=== PATIENT | female | born 1970 | race Two or more races ===

== ENCOUNTER 2022-12-02 16:39 | Emergency (ER) | payer OTHER, MEDICAID ==
[~2022-12-02] VITALS: Ht 172.7 cm; Wt 128.0 kg
[2022-12-02] MEDS ORDERED: HYDROmorphone HCL 2 MG/ML VL/or syr IM ONE (18:30)
[2022-12-02 19:13] LABS: Basophils # (auto) 0 10 ^3/uL (0-0.2); Basophils % (auto) 0.5 % (0.0-2.0); Eosinophils # (auto) 0 10 ^3/uL (0-0.8); Eosinophils % (auto) 0.3 % (0.0-7.0); Hematocrit 31.3 % (36.0-46.0); Hemoglobin 10.2 g/dL (12.2-16.2); Lymphocytes # (auto) 2.4 10 ^3/uL (0.4-5.4); Lymphocytes % (auto) 24.3 % (10.0-50.0); Mean Corpuscular Hemoglobin 30.1 pg (28.0-32.0); Mean Corpuscular Hgb Conc. 32.6 g/dL (32.0-36.0); Mean Corpuscular Volume 92.5 fL (80.0-100.0); Monocytes # (auto) 1.3 10 ^3/uL (0-1.3); Monocytes % (auto) 13.4 % (0.0-12.0); Neutrophils # (auto) 6.1 10 ^3/uL (1.6-8.6); Neutrophils % (auto) 61.5 % (37.0-80.0); Nucleated Red Blood Cells % 0.1 %; Red Blood Cells 3.38 10^6/uL (4.0-5.20); Red Cell Distribution Width 15.4 % (11.8-14.3); White Blood Cell 9.8 10^3/uL (4.4-10.8)
[2022-12-02 19:27] LABS: Alanine Aminotransferase 12 U/L (7-40); Alkaline Phosphatase 93 U/L (46-116); Calcium 10.1 mg/dL (8.7-10.4); Carbon Dioxide 24 mmol/L (20-30); Chloride 102 mmol/L (98-107); Glucose 92 mg/dL (74-106); Potassium 3.2 mmol/L (3.5-5.1)
[2022-12-02 19:28] LABS: Albumin 4.9 g/dL (3.2-4.8); Anion Gap 11 (5-15); Aspartate Aminotransferase < 8 U/L (13-40); BUN/Creatinine Ratio 26.8 (10.0-20.0); Bilirubin, Total 0.3 mg/dL (0.2-1.0); Blood Urea Nitrogen 22 mg/dL (9-23); Lipase 51 U/L (12-53); Sodium 137 mmol/L (136-145); Total Protein 8.4 g/dL (5.7-8.2)
[2022-12-02] MEDS ORDERED: cefEPIME 1gm INJ VIAL IM ONE (21:45)
[2022-12-02] MEDS ORDERED: metroNIDAZOLE 500 MG TAB PO ONE (21:45)
[2022-12-03 01:14] VITALS: BP 128/55; TEMP 98.5
[2022-12-03 01:27] VITALS: PULSE 87; RESP 18; O2SAT 98
== END 2022-12-03 20:21 | disposition short-term general hospital (02) ==
LOC: ER 16:39
DX: T81.49XA Infection following a procedure, other surgical site, initial encounter (principal); L02.414 Cutaneous abscess of left upper limb; Z98.890 Other specified postprocedural states; Z88.8 Allergy status to other drugs, medicaments and biological substances; Y92.89 Other specified places as the place of occurrence of the external cause
CPT/HCPCS: 36415; 73200; 80053; 83605; 83690; 83880; 84484; 85025; 87040; 96372; 99285; J0692; J1170